=== PATIENT | female | born 2000 | race Caucasian/White ===

== ENCOUNTER 2021-02-26 20:57 | Emergency (ER) | payer OTHER ==
[~2021-02-26] VITALS: Ht 162.6 cm; Wt 48.1 kg
[2021-02-26 21:18] VITALS: BP 123/75
--- NOTE | 2021-02-26 22:20 | NUR ---
NO NURSING CARE PROVIDED FOR PT. PT SEEN AND EVALUATED BY DR. HORNER.
[2021-02-26] MEDS ORDERED: IBUP-2213 PO (22:24)
--- NOTE | 2021-02-26 22:29 | NUR ---
PT UP FOR DISCHARGE. PT GIVEN DISCHARGE INSTRUCTIONS AND MEDICAITON INFORMATION BY DR. HORNER. RX OF MOTRIN PROVIDED. PT AMBULATORY TO PERSONAL VEHICLE
== END 2021-02-26 22:29 | disposition home or self-care (01) ==
LOC: MED 20:57
DX: J02.8 Acute pharyngitis due to other specified organisms (principal)
CPT/HCPCS: 99282